=== PATIENT | female | born 1955 | race Caucasian/White ===

== ENCOUNTER 2019-01-13 00:14 | Observation (INO) ==
[2019-01-13] MEDS ORDERED: Naloxone 0.4 MG/ML INJ IVP PRN (03:14)
[2019-01-13] MEDS ORDERED: Ondansetron 4 MG/2 ML VIAL IVP PRN (03:14)
[2019-01-13] MEDS ORDERED: Ipratropium/Albuterol Neb 3 ML IH PRN (04:27)
[2019-01-13] MEDS ORDERED: D5% in Water 1,000 ML IVC PRN (04:31)
[2019-01-13] MEDS ORDERED: Dextrose Gel 15 GM/37.5 ML TUBE PO PRN ×2 (04:31)
[2019-01-13] MEDS ORDERED: *HR* Dextrose 50 % in Water (Syg) 50 ML SYRINGE IVP PRN (04:31)
[2019-01-13 04:36] LABS: Basophils % 0.3 %; Eosinophils % 0.1 %; Hematocrit 36.2 % (35.3-44.9); Immature Granulocytes % 1.4 % (0-4); Lymphocytes % 19.3 %; Mean Corpuscular HGB Conc 33.1 g/dL (31.6-35.5); Mean Corpuscular Hemoglobin 32.5 pg (28.0-33.3); Mean Corpuscular Volume 98.1 fL (83.0-100.0); Mean Platelet Volume 10.5 fL (9.4-12.4); Monocytes # 0.7 K/mcL (0.0-1.3); Monocytes % 7.3 %; Neutrophils # 7.2 K/mcL (1.6-8.9); Platelet Count 222 K/mcL (140-400); Red Blood Count 3.69 M/mcL (3.82-4.97); Red Cell Distribution Width 12.4 % (11.5-14.5); Segmented Neutrophils % 71.6 %; White Blood Count 10.1 K/mcL (4.3-11.1)
[2019-01-13 04:57] LABS: Chol/HDL Ratio 1.8 (0-4.9)
[2019-01-13 05:00] LABS: Alanine Aminotransferase 15 Units/L (7-52); Albumin 3.7 g/dL (3.5-5.7); Albumin/Globulin Ratio 1.9 (1.1-2.2); Alkaline Phosphatase 51 Units/L (34-104); Aspartate Amino Transferase 11 Units/L (13-39); BUN/Creatinine Ratio 19 (6-26); Bilirubin,Total 0.3 mg/dL (0.3-1.0); Blood Urea Nitrogen 13 mg/dL (8-23); Carbon Dioxide 34 mEq/L (23-29); Chloride 101 mEq/L (98-107); Glucose 87 mg/dL (70-105); Osmolality,Calculated 295 (280-300); Potassium 3.5 mEq/L (3.5-5.1); Sodium 143 mEq/L (136-145); Total Protein 5.7 g/dL (6.4-8.9); Troponin I < 0.03 ng/mL (< 0.04); eGFR For African Americans > 60 (> 60); eGFR For Non-African Americans > 60 (> 60)
[2019-01-13 05:36] LABS: Lipase 56 Units/L (11-82)
[2019-01-13] MEDS: *HR* Heparin 5,000 UNIT/ML VIAL SQ SCH ×2 (05:55→17:29)
[2019-01-13] MEDS: 0.9 % Sodium Chloride 1,000 ML IVC SCH ×2 (05:55→20:35)
[2019-01-13] MEDS: Insulin LISPRO 300 UNITS/3 ML VIAL SQ SCH ×4 (08:32→20:42)
[2019-01-13] MEDS ORDERED: predniSONE 10 MG TABLET PO SCH (09:00)
[2019-01-13] MEDS: Nicotine 14 MG PATCH.TD24 TD SCH (09:28)
[2019-01-13] MEDS: Aspirin Enteric Coated 81 MG Tablet PO SCH (09:28)
[2019-01-13] MEDS: Ipratropium/Albuterol Neb 3 ML IH SCH ×4 (14:28→22:22)
[2019-01-13 15:45] LABS: Adenovirus Not Detected (Not Detect); Bordetella Pertussis Not Detected (Not Detect); Chlamydophila pneumoniae Not Detected (Not Detect); Coronavirus 229E Not Detected (Not Detect); Coronavirus HKU1 Not Detected (Not Detect); Coronavirus NL63 Not Detected (Not Detect); Coronavirus OC43 Not Detected (Not Detect); Human Metapneumovirus Not Detected (Not Detect); Human Rhinovirus/Enterovirus Not Detected (Not Detect); Influenza A Subtype 2009 H1 Not Detected (Not Detect); Influenza A Untypeable Not Detected (Not Detect); Influenza B Not Detected (Not Detect); Mycoplasma pneumoniae Not Detected (Not Detect); Parainfluenza Virus 1 Not Detected (Not Detect); Parainfluenza Virus 2 Not Detected (Not Detect); Parainfluenza Virus 3 Not Detected (Not Detect); Parainfluenza Virus 4 Not Detected (Not Detect); Respiratory Syncytial Virus Not Detected (Not Detect)
[2019-01-13] MEDS: MethylPREDNISolone 40 MG/ML VIAL IVP SCH (17:29)
[2019-01-14] MEDS: Ipratropium/Albuterol Neb 3 ML IH SCH ×4 (04:02→21:47)
[2019-01-14] MEDS: *HR* Heparin 5,000 UNIT/ML VIAL SQ SCH ×2 (05:45→17:45)
[2019-01-14] MEDS: MethylPREDNISolone 40 MG/ML VIAL IVP SCH ×2 (05:45→17:38)
[2019-01-14] MEDS: Insulin LISPRO 300 UNITS/3 ML VIAL SQ SCH ×4 (07:43→22:26)
[2019-01-14] MEDS: Aspirin Enteric Coated 81 MG Tablet PO SCH (08:33)
[2019-01-14] MEDS: Nicotine 14 MG PATCH.TD24 TD SCH (08:35)
[2019-01-14] MEDS ORDERED: Albuterol 2.5 MG/3 ML NEBULIZER IH PRN (10:20)
[2019-01-14] MEDS: Gabapentin 400 MG CAPSULE PO SCH ×2 (17:38→22:23)
[2019-01-15] MEDS: Ipratropium/Albuterol Neb 3 ML IH SCH ×2 (03:40→10:15)
[2019-01-15] MEDS: MethylPREDNISolone 40 MG/ML VIAL IVP SCH (05:06)
[2019-01-15] MEDS: *HR* Heparin 5,000 UNIT/ML VIAL SQ SCH (05:07)
[2019-01-15] MEDS ORDERED: Saline Nasal Spray 44 ML BOTTLE NS PRN (05:40)
[2019-01-15] MEDS: Insulin LISPRO 300 UNITS/3 ML VIAL SQ SCH ×2 (09:24→12:26)
[2019-01-15] MEDS: Nicotine 14 MG PATCH.TD24 TD SCH (09:35)
[2019-01-15] MEDS: Gabapentin 400 MG CAPSULE PO SCH (09:36)
[2019-01-15] MEDS: Aspirin Enteric Coated 81 MG Tablet PO SCH (09:36)
[2019-01-15 11:21] VITALS: BP 170/100
== END 2019-01-15 14:18 | disposition home or self-care (01) ==
LOC: 2ANU → SUATTDRO 02:17
PROVIDERS: ADMIT Family Medicine; ATTEND Internal Medicine